=== PATIENT | female | born 1980 | race Caucasian/White ===

== ENCOUNTER 2016-08-09 18:30 | Emergency (ER) | payer SELFPAY ==
--- NOTE | 2016-08-09 19:11 | ERPHSYRPT ---
- History of Present Illness Time Seen by Provider: 08/09/16 19:08 Source: patient Physician History: CCL left hand injury Hx: 35 y/o states she was running thru her house today to get the phone call and struck the left hand on a register vent. Pain, injury, and swelling. Swelling improving now. States not . Pain moderate and worse with touch or movement. Declines pain meds here. Occurred: other (today) Method of Injury: direct blow Extremities Pain Location: hand: left Allergies/Adverse Reactions: Penicillins Adverse Reaction (Mild, Verified 08/09/16 19:07) vomiting promethazine HCl [From Phenergan] Adverse Reaction (Mild, Verified 08/09/16 19: 07) vomiting Hx Tetanus, Diphtheria Vaccination/Date Given: Yes Hx Influenza Vaccination/Date Given: No Hx Pneumococcal Vaccination/Date Given: No - Review of Systems Constitutional: No Symptoms Musculoskeletal: Joint Pain (left hand), No Back Pain, No Neck Pain Neurological: No Focal Weakness, No Headache, No Parasthesia - Past Medical History Pertinent Past Medical History: Yes Neurological History: No Pertinent History ENT History: No Pertinent History Cardiac History: No Pertinent History Respiratory History: No Pertinent History Endocrine Medical History: No Pertinent History Musculoskeletal History: Other GI Medical History: No Pertinent History History: No Pertinent History Psycho-Social History: No Pertinent History Female Reproductive Disorders: Cervical Cancer, Endometriosis Other Medical History: ENDOMETRIEOSIS. TORN TENDON IN LEFT LEG - Past Surgical History Past Surgical History: Yes Neuro Surgical History: No Pertinent History Cardiac: No Pertinent History Respiratory: No Pertinent History Gastrointestinal: No Pertinent History Genitourinary: No Pertinent History Musculoskeletal: No Pertinent History Female Surgical History: Tubal Ligation, Other Other Surgical History: D&CX3. CYRO SURGERY FOR FEMALE STUFF - Social History Smoking Status: Current some day smoker How long have you smoked: 15 Exposure to second hand smoke: No Drug Use: none Patient Lives Alone: Yes - Nursing Vital Signs Nursing Vital Signs: Initial Vital Signs Temperature 97.7 F Temperature Source Oral Pulse Rate 92 Respiratory Rate 14 Blood Pressure [Right Arm] 104/71 Pain Intensity 4 - Physical Exam General Appearance: alert Eyes, Ears, Nose, Throat Exam: moist mucous membranes Neck Exam: supple Cardiovascular/Respiratory Exam: regular rate/rhythm Neuro/Tendon Exam: normal sensation, normal motor functions Mental Status Exam: alert, oriented x 3, cooperative Skin Exam: normal color, warm, dry, other (intact) Comments: some swelling left hand, skin intact. Good cap refill. No other arm tenderness. ROM intact. - Radiology Exams left hand X-ray Interpretation: Reviewed by me, No Fracture Ordered Tests: Active Orders 24 hr Category Date Time Status Cold Application STAT Care 08/09/16 19:08 Active Splint STAT Care 08/09/16 19:28 Ordered HAND (MINIMUM 3 VIEWS) Stat Exams 08/09/16 19:08 Taken - Progress Progress Note: 08/09/16 19:30 No apparent fx on prelim xray. Soft metacarpal wrap applied per ERMD. Will release with instructions. Counseled pt/family regarding: diagnosis, need for follow-up, rad results - Departure Time of Disposition: 19:30 Departure Disposition: Home Clinical Impression: Contusion of left hand Qualifiers: Encounter type: initial encounter Qualified Code(s): S60.222A - Contusion of left hand, initial encounter Condition: Stable Critical Care Time: No Referrals: DOCTOR,NO FAMILY [Primary Care Provider] - CARTER YAN [ACTIVE STAFF] - Instructions: Contusion Additional Instructions: SPRAINS/STRAINS/CONTUSIONS 1. Rest the affected area as much as possible for the next few days. 2. Apply ice to the affected area for 20-30 minutes at a time, several times a day. 3. If you receive an elastic wrap, wear it only while awake for comfort and support. Re-wrap the elastic wrap if it feels too tight or too loose. 4. If swelling is present, elevate the affected part above the level of the heart for at least 2 to 3 days. 5. Use splints, slings, or crutches as instructed. 6. Watch for severe swelling, coldness, numbness, and discoloration of the fingers and toes. See your family physician or return to the emergency department if any of these are noted. Wrap for comfort. Rx ibuprofen. Follow up next week if not better. Prescriptions: Ibuprofen 600 mg PO Q6H PRN PRN #24 tablet PRN Reason: Pain
[2016-08-09 19:46] VITALS: BP 122/86; PULSE 88; O2SAT 98
--- NOTE | 2016-08-10 16:19 | XRAY ---
Exam: 3 views of the left hand from 08/09/2016. Comparison: None. Indication: Hit her hand on radiator. Findings: AP, oblique, and lateral radiographs of the right hand were obtained. I see no acute fracture or dislocation. The joint spaces appear unremarkable. No radiopaque soft tissue foreign body is seen. Impression: 1. No acute fracture or other bone or joint abnormality is seen.
== END 2016-08-09 19:46 | disposition home or self-care (01) ==
LOC: ED 18:30
DX: S60.222A Contusion of left hand, initial encounter (principal); W22.8XXA Striking against or struck by other objects, initial encounter
CPT/HCPCS: 73130; 99281; 99283

== ENCOUNTER 2016-10-24 12:01 | Emergency (ER) | payer OTHER ==
[2016-10-24 12:09] VITALS: O2SAT 100
--- NOTE | 2016-10-24 12:39 | ERPHSYRPT ---
- History of Present Illness Time Seen by Provider: 10/24/16 12:31 Historian: patient Exam Limitations: no limitations Patient Subjective Stated Complaint: PT STATES SHE HAS HAD LEFT SIDED CHEST PAIN FOR SEVERAL MONTHS. PT BECAME CONCERNED TODAY DUE TO PAIN WORSE OVER THE LAST FEW DAYS. 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 STATES PAIN IS WORSE WITH MOVEMENT AND DEEP BREATHING. Triage Nursing Assessment: PT PINK, WARM, DRY. LUNG SOUNDS CLEAR AND EQUAL. P[T AFEBRILE. Physician History: The patient is a 36-year-old female who complains of intermittent chest pain for 6 months. The chest pain has always been on the upper left side of the front of her chest. She says this always felt like a tightening of the muscles. Sometimes it lasts for several days or a week at a time. Yesterday it started again. An today while at work the pain changed and became sharp. She became sweaty and short of breath. It hurt to breathe. Now the sharpness has gone away. She wants to be evaluated because the pain changed a little bit today. She takes no medicines. Her past medical history is significant only for endometriosis and "cervical cancer". Timing/Duration: other (6 months) Activities at Onset: activity Quality: cramping, sharpness Location: central, other (left chest) Chest Pain Radiation: back Severity of Pain-Max: moderate Severity of Pain-Current: moderate Modifying Factors: Improves With: nothing Associated Symptoms: shortness of breath, diaphoresis Prior Chest Pain/Cardiac Workup: no prior chest pain, no prior cardiac workup Nitro Today/Relief: no nitro taken today Aspirin Treatment Today: no aspirin today Allergies/Adverse Reactions: Penicillins Adverse Reaction (Mild, Verified 10/24/16 12:09) vomiting promethazine HCl [From Phenergan] Adverse Reaction (Mild, Verified 10/24/16 12: 09) vomiting Hx Tetanus, Diphtheria Vaccination/Date Given: Yes (UP TO DATE) Hx Influenza Vaccination/Date Given: No Hx Pneumococcal Vaccination/Date Given: No Immunizations Up to Date: Yes - Review of Systems Constitutional: No Fever, No Chills Eyes: No Symptoms Ears, Nose, & Throat: No Symptoms Respiratory: Dyspnea Cardiac: Chest Pain Abdominal/Gastrointestinal: No Abdominal Pain, No Nausea, No Vomiting, No Diarrhea Genitourinary Symptoms: No Dysuria Musculoskeletal: No Back Pain, No Neck Pain Skin: No Rash Neurological: No Dizziness, No Focal Weakness, No Sensory Changes Psychological: No Symptoms Endocrine: No Symptoms Hematologic/Lymphatic: No Symptoms Immunological/Allergic: No Symptoms All Other Systems: Reviewed and Negative - Past Medical History Pertinent Past Medical History: No Neurological History: No Pertinent History ENT History: No Pertinent History Cardiac History: No Pertinent History Respiratory History: No Pertinent History Endocrine Medical History: No Pertinent History Musculoskeletal History: Other GI Medical History: No Pertinent History History: No Pertinent History Psycho-Social History: No Pertinent History Female Reproductive Disorders: Cervical Cancer, Endometriosis Other Medical History: ENDOMETRIEOSIS. TORN TENDON IN LEFT LEG - Past Surgical History Past Surgical History: Yes Neuro Surgical History: No Pertinent History Cardiac: No Pertinent History Respiratory: No Pertinent History Gastrointestinal: No Pertinent History Genitourinary: No Pertinent History Musculoskeletal: No Pertinent History Female Surgical History: Tubal Ligation, Other Other Surgical History: CERVICAL CANCER. ENDOMETRIOSIS - Social History Smoking Status: Current some day smoker How long have you smoked: 15 Exposure to second hand smoke: No Drug Use: none Patient Lives Alone: No - Female History Hx Last Menstrual Period: END SEPTEMBER 2016 - Nursing Vital Signs Temperature: 99.1 F Temperature Source: Oral Pulse Rate: 87 Respiratory Rate: 18 Pain Intensity: 7 - Physical Exam General Appearance: other (tearful) Eye Exam: PERRL/EOMI, eyes nml inspection Ears, Nose, Throat Exam: normal ENT inspection, moist mucous membranes Neck Exam: normal inspection, non-tender, supple, full range of motion Respiratory Exam: chest tenderness Gastrointestinal/Abdomen Exam: soft, No tenderness, No mass Pelvic Exam: not done Rectal Exam: not done Back Exam: muscle spasm (tenderness to left trapezius) Extremity Exam: normal inspection, normal range of motion Neurologic Exam: alert, oriented x 3, cooperative, normal mood/affect, sensation nml, No motor deficits Skin Exam: normal color, warm, dry SpO2 Interpretation: normal SpO2: 100 Oxygen Delivery: Room Air - Course EKG Interpreted by Me: RATE, Sinus Rhythm, NORMAL AXIS, NORMAL INTERVALS, NORMAL QRS, NORMAL ST-T - Radiology Exams Chest X-ray Interpretation: Teleradiologist Report, Negative (per DR Poole.) Ordered Tests: Active Orders 24 hr Category Date Time Status Stake Setter STAT Care 10/24/16 12:35 Active EKG-ER Only STAT Care 10/24/16 12:35 Active IV Insertion STAT Care 10/24/16 12:35 Active Pulse Oximetry (ED) STAT Care 10/24/16 12:35 Active CHEST 2 VIEWS (PA AND LAT) Stat Exams 10/24/16 12:45 Completed CBC W DIFF Stat Lab 10/24/16 12:44 Completed CMP Stat Lab 10/24/16 12:45 Completed TROPONIN Stat Lab 10/24/16 12:45 Completed UA W/ MICROSCOPIC Stat Lab 10/24/16 12:45 Completed Urine Triage Profile Stat Lab 10/24/16 12:45 Completed Medication Summary Discontinued Medications Generic Name Dose Route Start Last Admin Trade Name Freq PRN Reason Stop Dose Admin Ketorolac Tromethamine 30 mg 10/24/16 12:44 10/24/16 12:50 Toradol 30 Mg Injection IV 10/24/16 12:45 30 mg STAT ONE Administration Ketorolac Tromethamine Confirm 10/24/16 12:49 Toradol 30 Mg Injection Administered 10/24/16 12:50 Dose 30 mg .ROUTE .STK-MED ONE Lab/Rad Data: Laboratory Result Diagrams 10/24/16 12:44 10/24/16 12:45 Laboratory Results 10/24/16 10/24/16 10/24/16 Range/Units 12:45 12:45 12:45 WBC (4.0-10.5) K/mm3 RBC (4.1-5.4) M/mm3 Hgb (12.0-16.0) gm/dl Hct (35-47) % MCV (78-100) fl MCH (26-32) pg MCHC (32-36) g/dl RDW (11.5-14.0) % Plt Count (150-450) K/mm3 MPV (6-9.5) fl Gran % (36.0-66.0) % Lymphocytes % (24.0-44.0) % Monocytes % (0.0-12.0) % Eosinophils % (0.00-5.0) % Basophils % (0.0-0.4) % Basophils # (0-0.4) Sodium 138 (136-145) mEq/L Potassium 4.0 (3.5-5.1) mEq/L Chloride 104 (98-107) mEq/L Carbon Dioxide 27.4 (21-32) mEq/L Anion Gap 10.7 (5-15) MEQ/L BUN 10 (9-20) mg/dL Creatinine 0.87 (0.55-1.30) mg/dl Estimated GFR > 60 ML/MIN Glucose 81 (70-110) MG/DL Calcium 8.3 L (8.5-10.1) mg/dL Total Bilirubin 0.4 (0.2-1.0) mg/dL AST 15 (15-37) U/L ALT 14 (12-78) U/L Alkaline Phosphatase 72 (46-116) U/L Troponin I < 0.017 (0.000-0.056) ng/ml Serum Total Protein 7.1 (6.4-8.2) gm/dL Albumin 3.5 (3.4-5.0) g/dL Ur Collection Type CLEAN CATCH Urine Color YELLOW (YELLOW) Urine Appearance SLIGHTLY CLOUDY (CLEAR) Urine pH 6.0 (5-6) Ur Specific [place] 1.025 (1.005-1.025) Urine Protein NEGATIVE (Negative) Urine Glucose (UA) NEGATIVE (NEGATIVE) mg/dL Urine Ketones NEGATIVE (NEGATIVE) Urine Nitrite NEGATIVE (NEGATIVE) Urine Bilirubin NEGATIVE (NEGATIVE) Urine Urobilinogen 0.2 (0-1) mg/dL Urine WBC (Auto) SMALL (NEGATIVE) Urine RBC (Auto) NEGATIVE (0-5) Hitesh/ul Urine Microscopic RBC 0-2 (0-2) /HPF Urine Microscopic WBC 10-15 (0-5) /HPF Ur Epithelial Cells MODERATE (FEW) /HPF Urine Bacteria FEW (NEGATIVE) /HPF Urine Mucus SLIGHT (NEGATIVE) /HPF Urine Opiates Level NEG. (NEGATIVE) Ur Methadone NEG. (NEGATIVE) Urine Barbiturates NEG. (NEGATIVE) Ur Phencyclidine (PCP) NEG. (NEGATIVE) Urine Amphetamine NEG. (NEGATIVE) U Benzodiazepine Level NEG. (NEGATIVE) Urine Cocaine NEG. (NEGATIVE) Urine Marijuana (THC) NEG. (NEGATIVE) Specimen Received 10/24/16 1230 10/24/16 Range/Units 12:44 WBC 6.2 (4.0-10.5) K/mm3 RBC 4.23 (4.1-5.4) M/mm3 Hgb 11.0 L (12.0-16.0) gm/dl Hct 35.1 (35-47) % MCV 83.0 (78-100) fl MCH 26.0 (26-32) pg MCHC 31.3 L (32-36) g/dl RDW 17.6 H (11.5-14.0) % Plt Count 342 (150-450) K/mm3 MPV 11.3 H (6-9.5) fl Gran % 65.3 (36.0-66.0) % Lymphocytes % 20.6 L (24.0-44.0) % Monocytes % 8.1 (0.0-12.0) % Eosinophils % 5.5 H (0.00-5.0) % Basophils % 0.5 (0.0-0.4) % Basophils # 0.03 (0-0.4) Sodium (136-145) mEq/L Potassium (3.5-5.1) mEq/L Chloride (98-107) mEq/L Carbon Dioxide (21-32) mEq/L Anion Gap (5-15) MEQ/L BUN (9-20) mg/dL Creatinine (0.55-1.30) mg/dl Estimated GFR ML/MIN Glucose (70-110) MG/DL Calcium (8.5-10.1) mg/dL Total Bilirubin (0.2-1.0) mg/dL AST (15-37) U/L ALT (12-78) U/L Alkaline Phosphatase (46-116) U/L Troponin I (0.000-0.056) ng/ml Serum Total Protein (6.4-8.2) gm/dL Albumin (3.4-5.0) g/dL Ur Collection Type Urine Color (YELLOW) Urine Appearance (CLEAR) Urine pH (5-6) Ur Specific [place] (1.005-1.025) Urine Protein (Negative) Urine Glucose (UA) (NEGATIVE) mg/dL Urine Ketones (NEGATIVE) Urine Nitrite (NEGATIVE) Urine Bilirubin (NEGATIVE) Urine Urobilinogen (0-1) mg/dL Urine WBC (Auto) (NEGATIVE) Urine RBC (Auto) (0-5) Hitesh/ul Urine Microscopic RBC (0-2) /HPF Urine Microscopic WBC (0-5) /HPF Ur Epithelial Cells (FEW) /HPF Urine Bacteria (NEGATIVE) /HPF Urine Mucus (NEGATIVE) /HPF Urine Opiates Level (NEGATIVE) Ur Methadone (NEGATIVE) Urine Barbiturates (NEGATIVE) Ur Phencyclidine (PCP) (NEGATIVE) Urine Amphetamine (NEGATIVE) U Benzodiazepine Level (NEGATIVE) Urine Cocaine (NEGATIVE) Urine Marijuana (THC) (NEGATIVE) Specimen Received - Progress Progress: improved Progress Note: 10/24/16 13:46 Pt feeling better after toradol 30 mg IV. Blood Culture(s) Obtained: No Antibiotics given: No Counseled pt/family regarding: lab results, diagnosis, need for follow-up, rad results - Departure Time of Disposition: 13:46 Departure Disposition: Home Clinical Impression: Muscle spasm Condition: Stable Critical Care Time: No Additional Instructions: You had muscle spasms in your chest and your back. You were given Toradol 30 mg IV in the ER. You were given a prescription for Flexeril 5 mg every 8 hours as needed for spasm and pain. If the condition returns or worsens, please see your primary care doctor or return to the ER if necessary. Prescriptions: Cyclobenzaprine HCl [Flexeril] 5 mg PO Q8H PRN PRN #10 tablet PRN Reason: Pain
[2016-10-24] MEDS ORDERED: TORAdol 30 mg Injection IV ONE (12:44)
[2016-10-24] MEDS ORDERED: TORAdol 30 mg Injection ONE (12:49)
[2016-10-24 13:01] LABS: BASOPHIL % 0.5 % (0.0-0.4); Eosinophil % 5.5 % (0.00-5.0); Granulocytes % 65.3 % (36.0-66.0); Lymphocytes % 20.6 % (24.0-44.0); Mean Platelet Volume 11.3 fl (6-9.5); Monocytes % 8.1 % (0.0-12.0); Platelet Count 342 K/mm3 (150-450); Red Blood Count 4.23 M/mm3 (4.1-5.4); Red Cell Distribution Width 17.6 % (11.5-14.0); White Blood Count 6.2 K/mm3 (4.0-10.5)
[2016-10-24 13:08] LABS: Collection Type CLEAN CATCH
[2016-10-24 13:09] LABS: COMPLETE URINE MICROSCOPIC? YES
[2016-10-24 13:12] LABS: Mucus SLIGHT /HPF (NEGATIVE)
[2016-10-24 13:13] LABS: Bacteria FEW /HPF (NEGATIVE); Epithelial Cells MODERATE /HPF (FEW)
--- NOTE | 2016-10-24 13:23 | XRAY ---
Indication: Chest pain. Comparison: August 20, 2006. PA/lateral chest again demonstrates normal heart, lungs, and bony thorax.
[2016-10-24 13:31] LABS: ALBUMIN 3.5 g/dL (3.4-5.0); ALKALINE PHOSPHATASE 72 U/L (46-116); ANION GAP 10.7 MEQ/L (5-15); BILIRUBIN,TOTAL 0.4 mg/dL (0.2-1.0); BLOOD UREA NITROGEN 10 mg/dL (9-20); CHLORIDE 104 mEq/L (98-107); Carbon Dioxide 27.4 mEq/L (21-32); Glucose 81 MG/DL (70-110); SGOT/AST 15 U/L (15-37); SGPT/ALT 14 U/L (12-78); SODIUM 138 mEq/L (136-145); Total Protein 7.1 gm/dL (6.4-8.2)
[2016-10-24 13:32] LABS: TROPONIN < 0.017 ng/ml (0.000-0.056)
[2016-10-24 13:56] VITALS: BP 111/65; PULSE 76
== END 2016-10-24 13:54 | disposition home or self-care (01) ==
LOC: ED 12:01
DX: M62.838 Other muscle spasm (principal)
CPT/HCPCS: 36000; 36415; 71020; 80053; 80307; 81000; 84484; 85025; 93005; 93041; 96374; 99284; 99285; J1885

== ENCOUNTER 2019-03-11 15:59 | Emergency (ER) | payer MEDICAID, OTHER ==
[2019-03-11] MEDS ORDERED: Zithromax 250 MG TABLET PO ONE (16:25)
[2019-03-11] MEDS ORDERED: DUONEB 0.5-3 MG/3 ml Neb IH ONE ×2 (16:25→16:42)
[2019-03-11] MEDS ORDERED: Decadron 4 MG INJ IM ONE (16:25)
--- NOTE | 2019-03-11 16:25 | ERPHSYRPT ---
- History of Present Illness Time Seen by Provider: 03/11/19 16:09 Source: patient, family Exam Limitations: no limitations (no) Patient Subjective Stated Complaint: pt here for cough, sob since sat, and pain with a deep breath today. she states she ran a fever on saturday Triage Nursing Assessment: pt alert, walked in, resp easy.chest clear, no edema Physician History: patient came to the ER with complaint of sore cough, shortness of breath, hurts to breathe, sore throat for last 4- 5 days. Timing/Duration: day(s) (5) Cough Quality/Degree: moderate, dry cough Possible Cause: occasional episodes Modifying Factors: Improves With: nothing Associated Symptoms: fever, chest pain/soreness, cough, shortness of breath, sore throat International travel in last 2 weeks: No Allergies/Adverse Reactions: Penicillins Adverse Reaction (Mild, Verified 03/11/19 16:16) vomiting promethazine HCl [From Phenergan] Adverse Reaction (Mild, Verified 03/11/19 16: 16) vomiting Hx Tetanus, Diphtheria Vaccination/Date Given: Yes (UP TO DATE) Hx Influenza Vaccination/Date Given: No Hx Pneumococcal Vaccination/Date Given: No Immunizations Up to Date: Yes - Review of Systems Constitutional: No Fever, No Chills Eyes: No Symptoms Ears, Nose, & Throat: No Symptoms, Throat Pain Respiratory: Cough, Dyspnea, Other (hurts to breathe) Cardiac: No Chest Pain, No Edema, No Syncope Abdominal/Gastrointestinal: No Abdominal Pain, No Nausea, No Vomiting, No Diarrhea Genitourinary Symptoms: No Dysuria Musculoskeletal: No Back Pain, No Neck Pain Skin: No Rash Neurological: No Dizziness, No Focal Weakness, No Sensory Changes Psychological: No Symptoms Endocrine: No Symptoms All Other Systems: Reviewed and Negative - Past Medical History Pertinent Past Medical History: Yes Neurological History: No Pertinent History ENT History: No Pertinent History Cardiac History: No Pertinent History Respiratory History: No Pertinent History Endocrine Medical History: No Pertinent History Musculoskeletal History: Other GI Medical History: No Pertinent History History: No Pertinent History Psycho-Social History: No Pertinent History Female Reproductive Disorders: Cervical Cancer, Endometriosis Other Medical History: ENDOMETRIEOSIS. TORN TENDON IN LEFT LEg - Past Surgical History Past Surgical History: Yes Neuro Surgical History: No Pertinent History Cardiac: No Pertinent History Respiratory: No Pertinent History Gastrointestinal: No Pertinent History Genitourinary: No Pertinent History Musculoskeletal: No Pertinent History Female Surgical History: Tubal Ligation, Other Other Surgical History: CERVICAL CANCER. ENDOMETRIOSIS - Social History Smoking Status: Never smoker How long have you smoked: 15 Exposure to second hand smoke: No Drug Use: none Patient Lives Alone: No - Female History Hx Last Menstrual Period: week ago Hx Now: No - Nursing Vital Signs Nursing Vital Signs: Initial Vital Signs Temperature 97.8 F 03/11/19 16:10 Pulse Rate 64 03/11/19 16:10 Respiratory Rate 18 03/11/19 16:10 Blood Pressure 108/79 03/11/19 16:10 O2 Sat by Pulse Oximetry 99 03/11/19 16:10 Pain Scale Pain Intensity 7 - Physical Exam General Appearance: no apparent distress, alert, other (patient examined in the presence of her daughter.) Eye Exam: PERRL/EOMI, eyes nml inspection Ears, Nose, Throat Exam: TMs normal, moist mucous membranes, pharyngeal erythema Neck Exam: normal inspection, non-tender, supple, full range of motion Respiratory Exam: normal breath sounds, lungs clear, airway intact, No chest tenderness, No respiratory distress, No diminished breath sounds, No accessory muscle use, No prolonged expirations, No crackles/rales, No rhonchi, No wheezing , No stridor Cardiovascular Exam: regular rate/rhythm, normal heart sounds Gastrointestinal/Abdomen Exam: soft, No tenderness Back Exam: normal inspection, No CVA tenderness, No vertebral tenderness Extremity Exam: normal inspection, normal range of motion Neurologic Exam: alert, oriented x 3, cooperative, normal mood/affect, sensation nml, No motor deficits Skin Exam: normal color, warm, dry, No rash Lymphatic Exam: No adenopathy SpO2: 99 - Course Nursing assessment & vital signs reviewed: Yes - Progress Progress: unchanged Air Movement: good Progress Note: no life oriented and in condition on discharge. Patient alert oriented x3. No respiratory distress. Lung exam clear. vital signs stable. 03/11/19 16:28 Blood Culture(s) Obtained: No Antibiotics given: No Counseled pt/family regarding: diagnosis, need for follow-up - Departure Departure Disposition: Home Clinical Impression: Acute bronchitis Qualifiers: Bronchitis organism: unspecified organism Qualified Code(s): J20.9 - Acute bronchitis, unspecified Acute pharyngitis Qualifiers: Pharyngitis/tonsillitis etiology: unspecified etiology Qualified Code(s): J02.9 - Acute pharyngitis, unspecified Condition: Stable Critical Care Time: No Referrals: DOCTOR,NO FAMILY [Primary Care Provider] - 03/13/19 Instructions: Cough, Adult (DC), Acute Bronchitis, Sore Throat in Adults Prescriptions: Albuterol 8 gm Mdi Hfa [Ventolin Hfa MDI] 8 gm IH Q4H #1 hfa.aer.ad Azithromycin 250 mg [Zithromax 250 MG TABLET] 250 mg PO ZPACK #6 tablet Prednisone 5 mg [Deltasone 5 mg] 5 mg PO DAILY 5 Days #5 tablet
[2019-03-11] MEDS ORDERED: Decadron 4 MG INJ ONE (16:28)
[2019-03-11] MEDS ORDERED: Zithromax 250 MG TABLET ONE (16:29)
[2019-03-11 17:21] VITALS: BP 116/63; PULSE 86; O2SAT 98
== END 2019-03-11 17:22 | disposition home or self-care (01) ==
LOC: ED 15:59
DX: J20.9 Acute bronchitis, unspecified (principal); J02.9 Acute pharyngitis, unspecified
CPT/HCPCS: 94150; 94640; 96372; 99283; J1100; A9270-GY

== ENCOUNTER 2019-03-15 09:29 | Emergency (ER) | payer MEDICAID ==
--- NOTE | 2019-03-15 10:08 | ERPHSYRPT ---
- History of Present Illness Time Seen by Provider: 03/15/19 10:06 Historian: patient Exam Limitations: no limitations Patient Subjective Stated Complaint: states was dx here last wed for bronchitis. was having chest pain at that time and states it is getting worse. was put on zithromax and prednisone. states she has finished both meds but isn't feeling any better. Triage Nursing Assessment: ambulated to room per self. skin w/d, color normal. resp nonlabored. dry occasional cough noted. describes pain in chest as a cramping pain. Physician History: Ms Lee is a 38 years old female states was dx here last wed for bronchitis. was having chest pain at that time and states it is getting worse. was put on zithromax and prednisone. states she has finished both meds but isn't feeling any better. She c/o left side upper chest pain. no radiation Timing/Duration: day(s) Activities at Onset: none Quality: tightness Location: other (left upper chest pain) Chest Pain Radiation: no radiation Severity of Pain-Max: mild Severity of Pain-Current: mild Modifying Factors: Improves With: nothing Associated Symptoms: shortness of breath, cough Prior Chest Pain/Cardiac Workup: no prior chest pain Nitro Today/Relief: no nitro taken today Aspirin Treatment Today: no aspirin today Body Map: 1 - area of chest pain Allergies/Adverse Reactions: Penicillins Adverse Reaction (Mild, Verified 03/15/19 09:40) vomiting promethazine HCl [From Phenergan] Adverse Reaction (Mild, Verified 03/15/19 09: 40) vomiting Hx Tetanus, Diphtheria Vaccination/Date Given: Yes (UP TO DATE) Hx Influenza Vaccination/Date Given: No Hx Pneumococcal Vaccination/Date Given: No - Review of Systems Constitutional: No Fever, No Chills Eyes: No Symptoms Ears, Nose, & Throat: No Symptoms Respiratory: Cough, Dyspnea on Exertion (VILLAVICENCIO), No Dyspnea Cardiac: Chest Pain, No Edema, No Syncope Abdominal/Gastrointestinal: No Abdominal Pain, No Nausea, No Vomiting, No Diarrhea Genitourinary Symptoms: No Dysuria Musculoskeletal: No Back Pain, No Neck Pain Skin: No Rash Neurological: No Dizziness, No Focal Weakness, No Sensory Changes Psychological: No Symptoms Endocrine: No Symptoms All Other Systems: Reviewed and Negative - Past Medical History Pertinent Past Medical History: Yes Neurological History: No Pertinent History ENT History: No Pertinent History Cardiac History: No Pertinent History Respiratory History: No Pertinent History Endocrine Medical History: No Pertinent History Musculoskeletal History: Other GI Medical History: No Pertinent History History: No Pertinent History Psycho-Social History: No Pertinent History Female Reproductive Disorders: Cervical Cancer, Endometriosis Other Medical History: ENDOMETRIEOSIS. TORN TENDON IN LEFT LEg - Past Surgical History Past Surgical History: Yes Neuro Surgical History: No Pertinent History Cardiac: No Pertinent History Respiratory: No Pertinent History Gastrointestinal: No Pertinent History Genitourinary: No Pertinent History Musculoskeletal: No Pertinent History Female Surgical History: Tubal Ligation, Other Other Surgical History: CERVICAL CANCER. ENDOMETRIOSIS - Social History Smoking Status: Former smoker How long have you smoked: 15 Exposure to second hand smoke: No Drug Use: none Patient Lives Alone: No - Female History Hx Last Menstrual Period: two weeks ago Hx Now: No - Nursing Vital Signs Nursing Vital Signs: Initial Vital Signs Pulse Rate 88 03/15/19 09:34 Respiratory Rate 16 03/15/19 09:34 Blood Pressure 109/66 03/15/19 09:34 O2 Sat by Pulse Oximetry 100 03/15/19 09:34 Pain Scale Pain Intensity 8 - Physical Exam General Appearance: no apparent distress, alert Eye Exam: PERRL/EOMI, eyes nml inspection Ears, Nose, Throat Exam: normal ENT inspection, moist mucous membranes Neck Exam: normal inspection, non-tender, supple, full range of motion Respiratory Exam: normal breath sounds, lungs clear, No respiratory distress Cardiovascular Exam: regular rate/rhythm, normal heart sounds Gastrointestinal/Abdomen Exam: soft, No tenderness, No mass Back Exam: normal inspection, No CVA tenderness, No vertebral tenderness Extremity Exam: normal inspection, normal range of motion Neurologic Exam: alert, oriented x 3, cooperative, normal mood/affect, sensation nml, No motor deficits Skin Exam: normal color, warm, dry SpO2: 100 - Course Nursing assessment & vital signs reviewed: Yes EKG Interpreted by Me: Sinus Rhythm - Radiology Exams Chest X-ray Interpretation: Reviewed by me (no infiltrate) Ordered Tests: Active Orders 24 hr Category Date Time Status EKG-ER Only STAT Care 03/15/19 10:04 Active CHEST 2 VIEWS (PA AND LAT) Stat Exams 03/15/19 10:04 Taken CBC W DIFF Stat Lab 03/15/19 09:42 Completed CMP Stat Lab 03/15/19 09:42 Completed D-DIMER QUANTITATION Stat Lab 03/15/19 09:42 Completed TROPONIN Q3H Lab 03/15/19 09:42 Completed TROPONIN Q3H Lab 03/15/19 13:15 Ordered TROPONIN Q3H Lab 03/15/19 16:15 Ordered TROPONIN Q3H Lab 03/15/19 19:15 Ordered TROPONIN Q3H Lab 03/15/19 22:15 Ordered Lab/Rad Data: Laboratory Result Diagrams 03/15/19 09:42 03/15/19 09:42 Laboratory Results 03/15/19 03/15/19 03/15/19 Range/Units 09:42 09:42 09:42 WBC (4.0-10.5) K/mm3 RBC (4.1-5.4) M/mm3 Hgb (12.0-16.0) gm/dl Hct (35-47) % MCV (78-100) fl MCH (26-32) pg MCHC (32-36) g/dl RDW (11.5-14.0) % Plt Count (150-450) K/mm3 MPV (6-9.5) fl Gran % (36.0-66.0) % Eos # (Auto) (0-0.5) Absolute Lymphs (auto) (1.0-4.6) Absolute Monos (auto) (0.0-1.3) Lymphocytes % (24.0-44.0) % Monocytes % (0.0-12.0) % Eosinophils % (0.00-5.0) % Basophils % (0.0-0.4) % Absolute Granulocytes (1.4-6.9) Basophils # (0-0.4) D-Dimer 220 (215-500) ng/mL Sodium 142 (137-145) mmol/L Potassium 3.9 (3.5-5.1) mmol/L Chloride 103 (98-107) mmol/L Carbon Dioxide 28 (22-30) mmol/L Anion Gap 13.7 (5-15) MEQ/L BUN 12 (7-17) mg/dL Creatinine 0.53 (0.52-1.04) mg/dL Estimated GFR > 60.0 ML/MIN Glucose 91 (74-106) mg/dL Calcium 8.5 (8.4-10.2) mg/dL Total Bilirubin 0.60 (0.2-1.3) mg/dL AST 17 (14-36) U/L ALT 13 (0-35) U/L Alkaline Phosphatase 60 (38-126) U/L Troponin I < 0.012 (0.000-0.034) ng/mL Serum Total Protein 6.6 (6.3-8.2) g/dL Albumin 3.8 (3.5-5.0) g/dL 03/15/19 Range/Units 09:42 WBC 7.8 (4.0-10.5) K/mm3 RBC 3.75 L (4.1-5.4) M/mm3 Hgb 9.7 L (12.0-16.0) gm/dl Hct 32.0 L (35-47) % MCV 85.3 (78-100) fl MCH 25.8 L (26-32) pg MCHC 30.3 L (32-36) g/dl RDW 18.6 H (11.5-14.0) % Plt Count 307 (150-450) K/mm3 MPV 11.5 H (6-9.5) fl Gran % 70.5 H (36.0-66.0) % Eos # (Auto) 0.39 (0-0.5) Absolute Lymphs (auto) 1.40 (1.0-4.6) Absolute Monos (auto) 0.49 (0.0-1.3) Lymphocytes % 17.9 L (24.0-44.0) % Monocytes % 6.3 (0.0-12.0) % Eosinophils % 5.0 (0.00-5.0) % Basophils % 0.3 (0.0-0.4) % Absolute Granulocytes 5.52 (1.4-6.9) Basophils # 0.02 (0-0.4) D-Dimer (215-500) ng/mL Sodium (137-145) mmol/L Potassium (3.5-5.1) mmol/L Chloride (98-107) mmol/L Carbon Dioxide (22-30) mmol/L Anion Gap (5-15) MEQ/L BUN (7-17) mg/dL Creatinine (0.52-1.04) mg/dL Estimated GFR ML/MIN Glucose (74-106) mg/dL Calcium (8.4-10.2) mg/dL Total Bilirubin (0.2-1.3) mg/dL AST (14-36) U/L ALT (0-35) U/L Alkaline Phosphatase (38-126) U/L Troponin I (0.000-0.034) ng/mL Serum Total Protein (6.3-8.2) g/dL Albumin (3.5-5.0) g/dL - Progress Progress: improved Air Movement: good Blood Culture(s) Obtained: No Antibiotics given: No Counseled pt/family regarding: lab results, diagnosis, need for follow-up, rad results - Departure Departure Disposition: Home Clinical Impression: Chest pain of uncertain etiology, Anemia due to blood loss, chronic Acute bronchitis Qualifiers: Bronchitis organism: unspecified organism Qualified Code(s): J20.9 - Acute bronchitis, unspecified Condition: Stable Critical Care Time: No Referrals: DOCTOR,NO FAMILY [Primary Care Provider] - Instructions: Atypical Chest Pain, Anemia Caused by Low Iron, Adult (DC) Additional Instructions: Discharge/Care Plan KENNETH LEE was seen on 03/15/19 in the Emergency Room. The patient was counseled regarding Diagnosis,Lab results, Imaging studies, need for follow up and when to return to the Emergency Room. Prescriptions given: Discharge Note I have spoken with the patient and/or caregivers. I have explained the patient' s condition, diagnosis and treatment plan based on the information available to me at this time. I have answered the patient's and/or caregiver's questions and addressed any concerns. The patient and/or caregivers have as good understanding of the patient's diagnosis, condition and treatment plan as can be expected at this point. The vital signs have been stable. The patient's condition is stable and appropriate for discharge from the emergency department. The patient will pursue further outpatient evaluation with the primary care physician or other designated or consulting physician as outlined in the discharge instructions. The patient and/or caregivers are agreeable to this plan of care and follow-up instructions have been explained in detail. The patient and/or caregivers have received these instruction. The patient/and or caregivers are aware that any significant change in condition or worsening of symptoms should prompt an immediate return to this or the closest emergency department or call 911. KENNETH LEE was seen on 03/15/19 n the Emergency Room. At that time you were treated for an emergent condition, during your visit Laboratory, Radiology and/or other procedures may have been ordered. It is very important that you follow-up with your Primary Care Physician NO FAMILY DOCTOR within the next 24- 48 hours to review your Emergency Room visit and the final results of testing that was ordered. Some test results such as Urine Cultures, Blood Cultures, and other cultures if ordered will not be finalized for 24-48 hours. If you do not have a Primary Care Provider please call the medical records department at [phone] ext [phone] to obtain a copy of your results or you may sign into our patient portal to obtain these results by visiting us @ [email or web address] and completing the following steps: 1. Click on the Patient Portal link 2. Click the Patient Self Enrollment Link to complete the enrollment form and entering your 3. Once the enrollment form is completed you will receive an email with a temporary ID and password at the email address you provided. 4. Next choose a user name and password. Your user name must be at least 4 characters long and your password must be at least 4 characters long. 5. Choose a security question from the list and provide your answer to the question. If you already have signed into the Health Portal you may access your Health Care Information 07/01 by the following steps: 1. Login to our website @ [email or web address] 2. Enter your original user name and password. FAQS The [facility] Health Portal is an online tool that contains your Lab Results, Radiology Reports, Visit History, Discharge Instructions and Health Summary Lab and Radiology Results will not be available for 72 hours on the portal. The Portal is a secure site, passwords are encryted and URLs are re-written so they cannot be copied and pasted. You and authorized family members are the only ones who can access your Portal. Also there is a timeout feature that protects your information if you leave the Portal page open. If you have technical difficulty please use the Contact Us link on the page this will allow you to submit any questions you have regarding the Portal or you may contact the Medical Record Department at [phone]. Prescriptions: 147/Iron/Folic Acid [Azesco Tablet] 1 each PO DAILY #30 tablet
[2019-03-15 10:14] LABS: Absolute Neutrophil Ct (ANC) 5.52 (1.4-6.9); BASOPHIL % 0.3 % (0.0-0.4); Basophil (Absolute #) 0.02 (0-0.4); Eosinophil (Absolute #) 0.39 (0-0.5); Hemoglobin 9.7 gm/dl (12.0-16.0); Lymphocytes % 17.9 % (24.0-44.0); Mean Cell Volume 85.3 fl (78-100); Mean Corpuscular Hgb Concent. 30.3 g/dl (32-36); Mean Platelet Volume 11.5 fl (6-9.5); Monocyte (Absolute #) 0.49 (0.0-1.3); Monocytes % 6.3 % (0.0-12.0); Neutrophil % 70.5 % (36.0-66.0); Platelet Count 307 K/mm3 (150-450); Red Blood Count 3.75 M/mm3 (4.1-5.4); Red Cell Distribution Width 18.6 % (11.5-14.0); White Blood Count 7.8 K/mm3 (4.0-10.5)
[2019-03-15 10:23] LABS: Mean Corpuscular Hemoglobin 25.8 pg (26-32)
[2019-03-15 10:27] LABS: ALBUMIN 3.8 g/dL (3.5-5.0); ALKALINE PHOSPHATASE 60 U/L (38-126); ANION GAP 13.7 MEQ/L (5-15); BLOOD UREA NITROGEN 12 mg/dL (7-17); CHLORIDE 103 mmol/L (98-107); Calcium 8.5 mg/dL (8.4-10.2); Carbon Dioxide 28 mmol/L (22-30); Creatinine 1 0.53 mg/dL (0.52-1.04); Glucose 91 mg/dL (74-106); Potassium 3.9 mmol/L (3.5-5.1); SGOT/AST 17 U/L (14-36); SGPT/ALT 13 U/L (0-35); SODIUM 142 mmol/L (137-145); Total Protein 6.6 g/dL (6.3-8.2)
[2019-03-15 11:22] VITALS: BP 105/60; PULSE 72; O2SAT 99
--- NOTE | 2019-03-15 20:04 | XRAY ---
Indication: Chest pain and short of breath. Comparison: October 24, 2016. PA/lateral chest again demonstrates normal heart, lungs, and bony thorax.
== END 2019-03-15 11:30 | disposition home or self-care (01) ==
LOC: ED 09:29
DX: R07.9 Chest pain, unspecified (principal); D50.0 Iron deficiency anemia secondary to blood loss (chronic); J20.9 Acute bronchitis, unspecified
CPT/HCPCS: 36000; 36415; 71046; 80053; 84484; 85025; 85379; 93005; 99284

== ENCOUNTER 2020-10-26 11:27 | Emergency (ER) | payer OTHER ==
--- NOTE | 2020-10-26 11:54 | ERPHSYRPT ---
- History of Present Illness Time Seen by Provider: 10/26/20 11:40 Source: patient Exam Limitations: no limitations Patient Subjective Stated Complaint: L hip pain Triage Nursing Assessment: pt to ED c/o L hip pain onset around 2 weeks ago. pt states she was seen in [facility] and dx with sciatica, pain did not improve so she saw chiropractor yesterday. today rates 8/10 pain in L hip that radiates down through L upper leg and knee. ambulates per self with steady gate but pt states it is painful Physician History: Patient is a 40-year-old female presents to our ED with complaints of left hip pain. Patient states symptoms started approximately 2 weeks ago. Pain has been progressive. Pain described as an ache that was originally localized but then started to radiate down her left thigh into her knee. Patient did follow-up at a [facility]. She was diagnosed with sciatica. Patient states that the recommended treatment did not improve her symptoms. Patient followed up with a chiropractor yesterday. Chiropractor was not sure what the source of her pain was. Patient is here seeking help. Symptoms are moderate in intensity. Patient states that ambulating worsens her symptoms. Patient currently ambula ace with an antalgic gait pattern. She has no other systemic manifestations. No fevers. No night sweats. No STI. No recent URI symptomology or infections. No recent trauma. No fever. No rash. Patient states she is otherwise healthy. She voices no other complaints or concerns at this time. Patient declined pain medication Method of Injury: unknown Occurred: other (2 weeks) Quality: constant, aching Severity of Pain-Max: moderate Severity of Pain-Current: mild Lower Extremities Pain: hip: left Modifying Factors: Improves With: movement (Weightbearing) Associated Symptoms: none Allergies/Adverse Reactions: Penicillins Adverse Reaction (Mild, Verified 10/26/20 11:40) vomiting promethazine HCl [From Phenergan] Adverse Reaction (Mild, Verified 10/26/20 11:40) vomiting Home Medications: Fluticasone Propionate [Flonase Allergy Relief] 9.9 ml NS DAILY 10/26/20 [History] Hx Tetanus, Diphtheria Vaccination/Date Given: Yes (UP TO DATE) Hx Influenza Vaccination/Date Given: Yes Hx Pneumococcal Vaccination/Date Given: No Immunizations Up to Date: Yes Travel Risk - International Travel Have you traveled outside of the country in past 3 weeks: No - Coronavirus Screening Are you exhibiting any of the following symptoms?: No Close contact with a COVID-19 positive Pt in past 14-21 Days: No - Vaccine Status Have you recieved a Covid-19 vaccination: No - Review of Systems Constitutional: No Symptoms, No Fever, No Chills Eyes: No Symptoms Ears, Nose, & Throat: No Symptoms Respiratory: No Symptoms, No Cough, No Dyspnea Cardiac: No Symptoms, No Chest Pain, No Edema, No Syncope Abdominal/Gastrointestinal: No Symptoms, No Abdominal Pain, No Nausea, No Vomiting, No Diarrhea Genitourinary Symptoms: No Symptoms, No Dysuria Musculoskeletal: No Symptoms, No Back Pain, No Neck Pain Skin: No Symptoms, No Rash Neurological: No Symptoms, No Dizziness, No Focal Weakness, No Sensory Changes Psychological: No Symptoms Endocrine: No Symptoms Hematologic/Lymphatic: No Symptoms Immunological/Allergic: No Symptoms All Other Systems: Reviewed and Negative - Past Medical History Pertinent Past Medical History: Yes Neurological History: No Pertinent History ENT History: No Pertinent History Cardiac History: No Pertinent History Respiratory History: No Pertinent History Endocrine Medical History: No Pertinent History Musculoskeletal History: Other GI Medical History: No Pertinent History History: No Pertinent History Psycho-Social History: No Pertinent History Female Reproductive Disorders: Cervical Cancer, Endometriosis Other Medical History: ENDOMETRIEOSIS. TORN TENDON IN LEFT LEg - Past Surgical History Past Surgical History: Yes Neuro Surgical History: No Pertinent History Cardiac: No Pertinent History Respiratory: No Pertinent History Gastrointestinal: No Pertinent History Genitourinary: No Pertinent History Musculoskeletal: No Pertinent History Female Surgical History: Tubal Ligation, Other Other Surgical History: CERVICAL CANCER. ENDOMETRIOSIS - Social History Smoking Status: Former smoker How long have you smoked: 15 Exposure to second hand smoke: No Drug Use: none Patient Lives Alone: No - Female History Hx Last Menstrual Period: last week Hx Now: No - Nursing Vital Signs Nursing Vital Signs: Initial Vital Signs Temperature 97.2 F 10/26/20 11:32 Pulse Rate 88 10/26/20 11:32 Respiratory Rate 18 10/26/20 11:32 Blood Pressure 122/82 10/26/20 11:32 O2 Sat by Pulse Oximetry 97 10/26/20 11:32 Pain Scale Pain Intensity [] 8 Pain Intensity 8 - Physical Exam General Appearance: no apparent distress, alert Eyes, Ears, Nose, Throat Exam: moist mucous membranes Neck Exam: non-tender, supple Cardiovascular/Respiratory Exam: chest non-tender, normal breath sounds, regular rate/rhythm, no respiratory distress Gastrointestinal/Abdominal Exam: non-tender, guarding Back Exam: normal inspection, normal range of motion, No CVA tenderness, No vertebral tenderness Hips Exam: right: non-tender, normal inspection, normal range of motion, no evidence of injury, bilateral: pain, soft tissue tenderness, other (Left hip presents with a dimple at the surface of the soft tissue just superficial to the hip joint. Palpation of this area reproduces symptoms.) Legs Exam: bilateral leg: non-tender, normal inspection, normal range of motion, no evidence of injury Knees Exam: bilateral knee: non-tender, normal inspection, normal range of motion, no evidence of injury Ankle Exam: bilateral ankle: non-tender, normal inspection, normal range of motion, no evidence of injury Foot Exam: bilateral foot: non-tender, normal inspection, normal range of motion, no evidence of injury Neuro/Tendon Exam: normal sensation, normal motor functions Mental Status Exam: alert, oriented x 3, cooperative Skin Exam: normal color, warm, dry SpO2 Interpretation: normal SpO2: 97 O2 Delivery: Room Air - Course Nursing assessment & vital signs reviewed: Yes - CT Exams Other CT Interpretation: Tele-radiologist Report (CT left hip demonstrates no significant bone or joint abnormality. Visualized hemipelvis and proximal femur show no abnormality. No fracture or bone destruction is seen. Fecal stasis and 1.6 cm in diameter left ovarian cyst versus follicle.) Ordered Tests: Active Orders 24 hr Category Date Time Status IV Insertion STAT Care 10/26/20 12:01 Active LOWER EXTREMITY WO CONTRAST [CT] Stat Exams 10/26/20 12:07 Completed BLOOD CULTURE Stat Lab 10/26/20 12:35 Received CBC W DIFF Stat Lab 10/26/20 12:15 Completed CMP Stat Lab 10/26/20 12:15 Completed ESR [Erythrocyte Sedimentation Rate] Stat Lab 10/26/20 12:15 Received Lactic Acid Stat Lab 10/26/20 12:01 Completed UA W/RFX UR CULTURE Stat Lab 10/26/20 13:13 Ordered Uric Acid Stat Lab 10/26/20 12:15 Completed Lab/Rad Data: Laboratory Result Diagrams 10/26/20 12:15 10/26/20 12:15 Laboratory Results 10/26/20 10/26/20 10/26/20 Range/Units 12:15 12:15 12:15 WBC 4.8 (4.0-10.5) K/mm3 RBC 4.18 (4.1-5.4) M/mm3 Hgb 11.3 L (12.0-16.0) gm/dl Hct 36.4 (35-47) % MCV 87.1 (78-100) fl MCH 27.0 (26-32) pg MCHC 31.0 L (32-36) g/dl RDW 16.7 H (11.5-14.0) % Plt Count 366 (150-450) K/mm3 MPV 11.6 H (7.5-11.0) fl Gran % 53.1 (36.0-66.0) % Eos # (Auto) 0.55 H (0-0.5) Absolute Lymphs (auto) 1.29 (1.0-4.6) Absolute Monos (auto) 0.39 (0.0-1.3) Lymphocytes % 26.9 (24.0-44.0) % Monocytes % 8.1 (0.0-12.0) % Eosinophils % 11.5 H (0.00-5.0) % Basophils % 0.4 (0.0-0.4) % Absolute Granulocytes 2.54 (1.4-6.9) Basophils # 0.02 (0-0.4) Sodium 139 (137-145) mmol/L Potassium 3.8 (3.5-5.1) mmol/L Chloride 105 (98-107) mmol/L Carbon Dioxide 27 (22-30) mmol/L Anion Gap 9.9 (5-15) MEQ/L BUN 10 (7-17) mg/dL Creatinine 0.59 (0.52-1.04) mg/dL Estimated GFR > 60.0 ML/MIN Glucose 72 L (74-106) mg/dL Lactic Acid (0.4-2.0) Uric Acid 3.8 (2.6-6.0) mg/dL Calcium 8.4 (8.4-10.2) mg/dL Total Bilirubin 0.40 (0.2-1.3) mg/dL AST 19 (14-36) U/L ALT 11 (0-35) U/L Alkaline Phosphatase 55 (38-126) U/L Serum Total Protein 6.4 (6.3-8.2) g/dL Albumin 3.7 (3.5-5.0) g/dL 10/26/20 Range/Units 12:01 WBC (4.0-10.5) K/mm3 RBC (4.1-5.4) M/mm3 Hgb (12.0-16.0) gm/dl Hct (35-47) % MCV (78-100) fl MCH (26-32) pg MCHC (32-36) g/dl RDW (11.5-14.0) % Plt Count (150-450) K/mm3 MPV (7.5-11.0) fl Gran % (36.0-66.0) % Eos # (Auto) (0-0.5) Absolute Lymphs (auto) (1.0-4.6) Absolute Monos (auto) (0.0-1.3) Lymphocytes % (24.0-44.0) % Monocytes % (0.0-12.0) % Eosinophils % (0.00-5.0) % Basophils % (0.0-0.4) % Absolute Granulocytes (1.4-6.9) Basophils # (0-0.4) Sodium (137-145) mmol/L Potassium (3.5-5.1) mmol/L Chloride (98-107) mmol/L Carbon Dioxide (22-30) mmol/L Anion Gap (5-15) MEQ/L BUN (7-17) mg/dL Creatinine (0.52-1.04) mg/dL Estimated GFR ML/MIN Glucose (74-106) mg/dL Lactic Acid 1.4 (0.4-2.0) Uric Acid (2.6-6.0) mg/dL Calcium (8.4-10.2) mg/dL Total Bilirubin (0.2-1.3) mg/dL AST (14-36) U/L ALT (0-35) U/L Alkaline Phosphatase (38-126) U/L Serum Total Protein (6.3-8.2) g/dL Albumin (3.5-5.0) g/dL - Departure Departure Disposition: Home Clinical Impression: fecal stasis, Ovarian cyst, ovarian follicle, Hip pain, left Condition: Stable Critical Care Time: No Referrals: DOCTOR,NO FAMILY [Primary Care Provider] - Additional Instructions: Discharge/Care Plan KENNETH FERMIN was seen on 10/26/20 in the Emergency Room. The patient was counseled regarding Diagnosis,Lab results, Imaging studies, need for follow up and when to return to the Emergency Room. Prescriptions given: Discharge Note I have spoken with the patient and/or caregivers. I have explained the patient's condition, diagnosis and treatment plan based on the information available to me at this time. I have answered the patient's and/or caregiver's questions and addressed any concerns. The patient and/or caregivers have as good understanding of the patient's diagnosis, condition and treatment plan as can be expected at this point. The vital signs have been stable. The patient's condition is stable and appropriate for discharge from the emergency department. The patient will pursue further outpatient evaluation with the primary care physician or other designated or consulting physician as outlined in the discharge instructions. The patient and/or caregivers are agreeable to this plan of care and follow-up instructions have been explained in detail. The patient and/or caregivers have received these instruction. The patient/and or caregivers are aware that any significant change in condition or worsening of symptoms should prompt an immediate return to this or the closest emergency department or call 911. Outpatient Orders: Ortho Referral Time Frame: 1 Day, Facility: [facility], Locati on: ORTHO CLINIC
--- NOTE | 2020-10-26 12:47 | XRAY ---
Exam: CT of the left lower extremity with attention to the hip without IV contrast from 10/26/2020. CTDI: 28.07 mGy Comparison: None. Indication: 40-year-old female with left hip pain for 2 weeks, no known injury. Clinical concern for infection. Technique: Non-IV contrast axial images were obtained from the upper pelvis down to the proximal left thigh about the 6-7 cm below the lesser trochanter using bone window technique. Reconstructed coronal and sagittal images were created and reviewed. Findings: I see no evidence of left hip fracture or dislocation. The left hip joint space appears unremarkable. No significant joint effusion is evident. I detect no focal bone destruction within the visualized left hemipelvis or proximal left femur. Scattered colonic stool is seen throughout the visualized abdomen consistent with fecal stasis. The left ovary reveals a 1.6 cm cyst or follicle within it on axial image #19. Some calcified phleboliths are seen within the lower left pelvis. The uterus is anteflexed. Musculature surrounding the proximal left femur appears unremarkable. No radiopaque soft tissue foreign body is seen. Some small nonspecific postinflammatory lymph nodes are seen within the left groin. Impression: 1. No significant bone or joint abnormality is seen within the visualized left hemipelvis or proximal left femur. Specifically, no fracture or bone destruction is seen. Furthermore, I detect no significant left hip joint effusion. 2. Fecal stasis and 1.6 cm in diameter left ovarian cyst versus follicle.
[2020-10-26 12:52] LABS: Absolute Neutrophil Ct (ANC) 2.54 (1.4-6.9); BASOPHIL % 0.4 % (0.0-0.4); Basophil (Absolute #) 0.02 (0-0.4); Eosinophil % 11.5 % (0.00-5.0); Eosinophil (Absolute #) 0.55 (0-0.5); Hematocrit 36.4 % (35-47); Hemoglobin 11.3 gm/dl (12.0-16.0); Lymphocyte (Absolute #) 1.29 (1.0-4.6); Lymphocytes % 26.9 % (24.0-44.0); Mean Cell Volume 87.1 fl (78-100); Mean Platelet Volume 11.6 fl (7.5-11.0); Monocyte (Absolute #) 0.39 (0.0-1.3); Monocytes % 8.1 % (0.0-12.0); Neutrophil % 53.1 % (36.0-66.0); Platelet Count 366 K/mm3 (150-450); Red Blood Count 4.18 M/mm3 (4.1-5.4); Red Cell Distribution Width 16.7 % (11.5-14.0); White Blood Count 4.8 K/mm3 (4.0-10.5)
[2020-10-26 12:54] LABS: ALBUMIN 3.7 g/dL (3.5-5.0); ALKALINE PHOSPHATASE 55 U/L (38-126); ANION GAP 9.9 MEQ/L (5-15); BLOOD UREA NITROGEN 10 mg/dL (7-17); CHLORIDE 105 mmol/L (98-107); Calcium 8.4 mg/dL (8.4-10.2); Carbon Dioxide 27 mmol/L (22-30); Creatinine 1 0.59 mg/dL (0.52-1.04); EST GLOMERULAR FILTRATION RATE > 60.0 ML/MIN; Glucose 72 mg/dL (74-106); Potassium 3.8 mmol/L (3.5-5.1); SGOT/AST 19 U/L (14-36); SGPT/ALT 11 U/L (0-35); SODIUM 139 mmol/L (137-145); Total Protein 6.4 g/dL (6.3-8.2)
[2020-10-26 13:00] VITALS: BP 114/67; PULSE 81
[2020-10-26 13:04] VITALS: O2SAT 97
== END 2020-10-26 13:44 | disposition home or self-care (01) ==
LOC: ED 11:27
DX: K56.41 Fecal impaction (principal); M25.552 Pain in left hip; Z85.41 Personal history of malignant neoplasm of cervix uteri; N80.9 Endometriosis, unspecified
CPT/HCPCS: 36000; 36415; 73700; 80053; 83605; 84550; 85025; 85652; 86140; 87040; 87077; 99284

== ENCOUNTER 2021-01-04 13:17 | Day surgery (SDC) | payer OTHER ==
[2021-01-04] MEDS ORDERED: BUPIVACAINE 0.5% VIAL IJ ONE (13:18)
[2021-01-04] MEDS ORDERED: Depo-Medrol 40 MG/ML IM ONE (13:18)
[2021-01-04] MEDS ORDERED: DIPRIVAN 200 MG/20 ML IV ONE (15:23)
[2021-01-04] MEDS ORDERED: Lactated Ringers 1,000 ML IV ONE (15:56)
--- NOTE | 2021-01-04 16:32 | XRAY ---
Indication: Left SI joint injection. Intraoperative fluoroscopy provided for 7 seconds. Single lateral digital spot image submitted for interpretation demonstrates posterior needle tip projecting mid sacrum level. Correlate with intraoperative findings/report.
--- NOTE | 2021-01-04 16:45 | XRAY ---
7 seconds fluoroscopy time in surgery for injection of the left SI joint.
== END 2021-01-04 15:45 | disposition home or self-care (01) ==
LOC: SDC-PAIN 13:17
PROVIDERS: ATTEND Psychiatry & Neurology Pain Medicine
DX: M46.1 Sacroiliitis, not elsewhere classified (principal); Z79.899 Other long term (current) drug therapy
CPT/HCPCS: 27096; 36415; 72020; 77002; 81025; J1030; J2704; G0260

== ENCOUNTER 2021-02-08 13:43 | Day surgery (SDC) | payer OTHER ==
[2021-02-08] MEDS ORDERED: Depo-Medrol 40 MG/ML IM ONE (13:44)
[2021-02-08] MEDS ORDERED: BUPIVACAINE 0.5% VIAL IJ ONE (13:44)
[2021-02-08] MEDS ORDERED: Lactated Ringers 1,000 ML IV ONE (14:07)
[2021-02-08] MEDS ORDERED: DIPRIVAN 200 MG/20 ML IV ONE (14:55)
--- NOTE | 2021-02-08 17:04 | XRAY ---
32 seconds fluoroscopy time in surgery for injections of the greater trochanter and ischial bursa of the left hip.
--- NOTE | 2021-02-08 17:07 | XRAY ---
Indication: Left hip injection. Intraoperative fluoroscopy provided for 32 seconds. 2 digital spot images submitted for interpretation demonstrates needle tip lateral to left greater trochanter. Second needle tip inferior to left ischial tuberosity. Small amount of contrast injected for both needle tip placement. Correlate with intraoperative findings/report.
== END 2021-02-08 15:27 | disposition home or self-care (01) ==
LOC: SDC-PAIN 13:43
PROVIDERS: ATTEND Psychiatry & Neurology Pain Medicine
DX: M16.12 Unilateral primary osteoarthritis, left hip (principal); M70.62 Trochanteric bursitis, left hip; M70.61 Trochanteric bursitis, right hip; Z79.899 Other long term (current) drug therapy
CPT/HCPCS: 20610; 73502; 77002; 84703; J1030; J2704; Q9966

== ENCOUNTER 2021-04-28 12:00 | Day surgery (SDC) | payer OTHER ==
[2021-04-28] MEDS ORDERED: BUPIVACAINE 0.5% VIAL IJ ONE (12:01)
[2021-04-28] MEDS ORDERED: Depo-Medrol 40 MG/ML IM ONE (12:01)
[2021-04-28] MEDS ORDERED: Lactated Ringers 1,000 ML IV ONE (12:13)
[2021-04-28] MEDS ORDERED: DIPRIVAN 200 MG/20 ML IV ONE (13:36)
--- NOTE | 2021-04-28 14:13 | XRAY ---
26 seconds fluoroscopy time in surgery for injections of the left SI joint and left ischial bursa.
--- NOTE | 2021-04-28 14:13 | XRAY ---
Indication: Left SI joint and ischial bursa injections. Intraoperative fluoroscopy provided for 26 seconds. 3 digital spot images submitted for interpretation demonstrates posterior needle tip projecting over the inferior left SI joint. Second needle tip inferior to the left ischial tuberosity with small amount of contrast injected for needle tip placement. Correlate with intraoperative findings/report.
== END 2021-04-28 14:00 | disposition home or self-care (01) ==
LOC: SDC-PAIN 12:00
PROVIDERS: ATTEND Psychiatry & Neurology Pain Medicine
DX: M46.1 Sacroiliitis, not elsewhere classified (principal); M70.62 Trochanteric bursitis, left hip; N80.9 Endometriosis, unspecified; C53.0 Malignant neoplasm of endocervix; Z79.899 Other long term (current) drug therapy
CPT/HCPCS: 20610; 27096; 72202; 77002; 84703; J1030; J2704; Q9966; G0260

== ENCOUNTER 2021-11-01 10:30 | Day surgery (SDC) | payer OTHER ==
[2021-11-01] MEDS ORDERED: Depo-Medrol 40 MG/ML IM ONE (10:31)
[2021-11-01] MEDS ORDERED: Marcaine Mpf 0.5% Vial 30 Ml IJ ONE (10:31)
[2021-11-01] MEDS ORDERED: Lactated Ringers 1,000 ML IV ONE (11:33)
[2021-11-01] MEDS ORDERED: DIPRIVAN 200 MG/20 ML IV ONE (11:51)
--- NOTE | 2021-11-01 14:04 | XRAY ---
Indication: Left SI joint and left ischial bursa injection Intraoperative fluoroscopy provided for 14 seconds. 3 digital spot image obtained prone submitted for interpretation demonstrates posterior needle tip projecting over the inferior left SI joint. Second needle tip projects over left inferior pubic ramus with small amount of contrast injected for needle tip placement Correlate with intraoperative findings/report.
--- NOTE | 2021-11-01 15:17 | XRAY ---
14 seconds of fluoroscopy was used in surgery for a left SI joint and left ischial bursa injections.
== END 2021-11-01 12:32 | disposition home or self-care (01) ==
LOC: SDC-PAIN 10:30
PROVIDERS: ATTEND Psychiatry & Neurology Pain Medicine
DX: M46.1 Sacroiliitis, not elsewhere classified (principal); M70.62 Trochanteric bursitis, left hip
CPT/HCPCS: 20610; 27096; 72170; 77002; 84703; J1030; J2704; Q9966; G0260